=== PATIENT | male | born 1955 | race Two or more races ===

== ENCOUNTER 2025-07-12 11:18 | Inpatient (IN) | payer MEDICARE, MEDICAID ==
[~2025-07-12] VITALS: Ht 175.3 cm; Wt 72.0 kg
--- NOTE | 2025-07-12 12:11 | ED.PDOC ---
GI ASSESSMENT HPI Comments 70 year old male presents to the ED via EMS with a chief complaint of nausea/vomiting onset today (07/12/25). Per EMS, patient has been experiencing diarrhea for the past 2 days, woke up this morning experiencing nausea/vomiting. In route to ED, patient was given Zofran 4 mg, NS 500 mL. Patient states he is currently experiencing generalized weakness, drinks 1-2 beers daily. Denies fever, chills, chest pain, dizziness, headache, hematemesis, dysuria, hematuria, melena, blood in stool. No other symptoms or modifying factors present at this time. Chief Complaint: Nausea/Vomiting Time Seen by MD: 11:55 Reviewed Notes: Medications, Allergies Allergies: Coded Allergies: Penicillins (Verified Allergy, Severe, 07/12/25) Information Source: Patient, Emergency Med Personnel, Spouse Mode of Arrival: EMS Timing: Days Duration: Since onset Prehospital treatment: None Quality: Sharp Stool: Loose Severity: Moderate Recent: Ingestion of ETOH Recent Hx of: None Pain Location: Diffuse Modifying Factors: Nothing Associated sign and symptoms: Nausea, Vomiting, Diarrhea, Abdominal Pain Past Medical History PAST MEDICAL HISTORY: Denies Surgical History: Denies all surgeries Family History Family History: Reviewed,noncontributory to illness, No family hx of Cancer, No family hx of DM, No family hx of Heart hiren, No family hx of HTN, No family hx ofKidney hiren, No family hx of Liver hiren, No family hx of Lung hiren, No family hx of Stroke Social History Smoker: Non-Smoker Alcohol: Heavy Drugs: Denies Drug Use Lives In: Home Constitutional: reports: weakness; denies: chills, diaphoresis, fatigue, fever, malaise, sweats, others EENTM: denies: blurred vision, double vision, ear bleeding, ear discharge, ear drainage, ear pain, ear ringing, eye pain, eye redness, hearing loss, mouth pain, mouth swelling, nasal discharge, nose bleeding, nose congestion, nose pain, photophobia, tearing, throat pain, throat swelling, voice changes, others Respiratory: denies: cough, hemoptysis, orthopnea, SOB at rest, shortness of breath, SOB with excertion, stridor, wheezing, others Cardiovascular: denies: chest pain, dizzy spells, diaphoresis, Dyspnea on exertion, edema, irregular heart beat, left arm pain, lightheadedness, palpit ations, PND, syncope, others Gastrointestinal: reports: abdominal pain, nausea, vomiting; denies: abdomen distended, blood streaked bowels, constipated, diarrhea, dysphagia, difficulty swallowing, hematemesis, melena, poor appetite, poor fluid intake, rectal bleeding, rectal pain, others Genitourinary: denies: burning, dysuria, flank pain, frequency, hematuria, incontinence, penile discharge, penile sore, pain, testicle pain, testicle swelling, urgency, others Neurological: denies: dizziness, fainting, headache, left sided numbness, left sided weakness, numbness, paresthesia, pre-existing deficit, right sided numbness, right sided weakness, seizure, speech problems, tingling, tremors, weakness, others Musculoskeletal: denies: back pain, gout, joint pain, joint swelling, muscle pain, muscle stiffness, neck pain, others Integumetry: denies: bruises, change in color, change in hair/nails, dryness, laceration, lesions, lumps, rash, wounds, others Allergic/Immunocompromised: denies: Difficulty Healing, Frequent Infections, Hives, Itching, others Hematologic/Lymphatic: denies: anemia, blood clots, easy bleeding, easy bruising, swollen glands, others Endocrine: denies: excessive hunger, excessive sweating, excessive thirst, excessive urination, flushing, intolerance to cold, intolerance to heat, unexplained weight gain, unexplained weight loss, others Psychiatric: denies: anxiety, bipolar disorder, depression, hopeless, panic disorder, schizophrenia, sleepless, suicidal, others All Other Systems: Reviewed and Negative Physical Exam General Appearance: Moderate Distress, Normal HEENT: Normal ENT Inspection, Pharynx Normal, TMs Normal Neck: Full Range of Motion, Non-Tender, Normal, Normal Inspection Respiratory: Chest Non-Tender, Lungs Clear, No Accessory Muscle Use, No R espiratory Distress, Normal Breath Sounds Cardiovascular: No Edema, No JVD, No Murmur, No Gallop, Normal Peripheral Pulses, Regular Rate/Rhythm Breast Exam: Deferred Gastrointestinal: No Organomegaly, Non Tender, No Pulsatile Mass, Normal Bowel Sounds, Soft Genitalia: Deferred Pelvic: Deferred Rectal: Deferred Extremities: No calf tenderness, Normal capillary refill, Normal inspection, Normal range of motion, Non-tender, No pedal edema Musculoskeletal : Apperance: Normal Neurologic: Alert, 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 Was a procedure done?: No GI differential Dx Differential Diagnosis: Constipation, Diverticular disease, Esophagitis, Gastritis/PUD, Gastroenteritis X-Ray, Labs, Meds, VS Vital Signs Date Time Temp Pulse Resp B/P (MAP) Pulse Ox O2 Delivery O2 Flow Rate FiO2 07/12/25 16:12 97.5 84 19 142/73 (96) 97 97.5 07/12/25 12:11 70 07/12/25 11:26 97.6 72 18 169/96 97 97.6 07/12/25 11:22 70 Lab Test 07/12/25 12:45 Range/Units White Blood Count 11.7 H 4.4-10.8 10^3/uL Red Blood Count 5.50 4.5-5.90 10^6/uL Hemoglobin 17.5 13.5-17.5 g/dL Hematocrit 51.3 41.0-53.0 % Mean Corpuscular Volume 93.4 80.0-100.0 fL Mean Corpuscular Hemoglobin 31.7 28.0-32.0 pg Mean Corpuscular Hemoglobin Concent 34.0 32.0-36.0 g/dL Red Cell Distribution Width 13.0 11.8-14.3 % Platelet Count 235 140-450 10^3/uL Mean Platelet Volume 7.0 6.9-10.8 fL Neutrophils (%) (Auto) 83.2 H 37.0-80.0 % Lymphocytes (%) (Auto) 10.2 10.0-50.0 % Monocytes (%) (Auto) 6.2 0.0-12.0 % Eosinophils (%) (Auto) 0.2 0.0-7.0 % Basophils (%) (Auto) 0.2 0.0-2.0 % Neutrophils # (Auto) 9.7 H 1.6-8.6 10 ^3/uL Lymphocytes # (Auto) 1.2 0.4-5.4 10 ^3/uL Monocytes # (Auto) 0.7 0-1.3 10 ^3/uL Eosinophils # (Auto) 0 0-0.8 10 ^3/uL Basophils # (Auto) 0 0-0.2 10 ^3/uL Nucleated Red Blood Cells 0.1 % Sodium Level 140 136-145 mmol/L Potassium Level 4.3 3.5-5.1 mmol/L Chloride Level 103 98-107 mmol/L Carbon Dioxide Level 28 20-31 mmol/L Anion Gap 9 5-15 Blood Urea Nitrogen 20 9-23 mg/dL Creatinine 1.02 0.700-1.30 mg/dL Glomerular Filtration Rate Calc 80 >90 mL/min BUN/Creatinine Ratio 19.6 10.0-20.0 Serum Glucose 123 H 74-106 mg/dL Hemoglobin A1c 5.6 <5.7 % A1C Calcium Level 9.7 8.7-10.4 mg/dL Phosphorus Level 2.2 L 2.4-5.1 mg/dL Magnesium Level 1.9 1.6-2.6 mg/dL Total Bilirubin 0.8 0.2-1.0 mg/dL Direct Bilirubin 0.2 <0.3 mg/dL Aspartate Amino Transferase (AST) 36 13-40 U/L Alanine Aminotransferase (ALT) 28 7-40 U/L Alkaline Phosphatase 98 46-116 U/L Troponin I High Sensitivity 9 </=54 ng/L Total Protein 7.8 5.7-8.2 g/dL Albumin 4.9 H 3.2-4.8 g/dL Triglycerides Level 139 < 150 mg/dL Cholesterol Level 224 H < 200 mg/dL LDL Cholesterol 154 H < 100 mg/dL HDL Cholesterol 62 H 40-59 mg/dL Lipase Pending Current Medications Medications (Trade) Dose Ordered Sig/Nani Route Start Time Stop Time Status Last Admin Ondansetron HCl (Zofran) 4 mg ONCE ONCE IV 07/12/25 12:15 07/12/25 12:16 DC 07/12/25 13:22 Sodium Chloride 1,000 ml @ 1,000 mls/hr Q1H ONCE IV 07/12/25 12:15 07/12/25 13:14 DC 07/12/25 12:15 Patient alert. Came in for generalized weakness. Vitals stable. Answering questions. Moving all extremities. History of alcohol use. Liver profile within normal limits. Establish intravenous access. Was given fluids. WBC slightly elevated. Blood pressure elevated. EKG reviewed does not show any acute changes. Explained to the patient. Continue monitoring. Time of 1ST Reevaluation: 12:25 Reevaluation 1ST: Unchanged Patient Education/Counseling: Diagnosis, Treatment, Prognosis Family Education/Counseling: Diagnosis, Treatment, Prognosis SEPSIS Sepsis Screen Date sepsis recognized/suspect: Jul 12, 2025 Time Sepsis recognized/suspect: 1127 Recent Procedure: No On Antibiotic Therapy: No Respiratory Rate >20: No Heart Rate >90: No Temp<36 C (96.8 F) or >38.3 C: No SBP <90 or MAP <65 mmHG: No New Acute Mental Status Change: No Is the patient on CPAP, BIPAP,: No Physician Orders Electrocardigram (07/12/25 11:59) Admit (07/12/25 15:19) Allergies (07/12/25 15:19) Code Status (07/12/25 15:19) Zinc Sulfate (07/13/25 10:00) Complete Blood Count (07/13/25 04:00) Comprehensive Metabolic Panel (07/13/25 04:00) Npo (Nothing By Mouth) Diet (07/12/25 Dinner) Pt Request For Service (07/12/25 15:19) Echo 2d Mode Cardiac Dop (07/12/25 15:19) Condition: Serious (07/12/25 15:19) Enoxaparin Sodium (Lovenox) (07/12/25 15:30) Oxygen By Nasal Cannula (07/12/25 15:19) Pantoprazole (Protonix) (07/13/25 10:00) Sucralfate Susp (Carafate Susp) (07/12/25 22:00) Ondansetron Hcl (Zofran) (07/12/25 15:30) Ceftriaxone 1gm/50ml (Rocephin) (07/13/25 09:00) Metronidazole 500mg/100ml (Flagyl 500mg/ (07/12/25 22:00) Metronidazole 500mg/100ml (Flagyl 500mg/ (07/12/25 15:30) Stool Occult Blood (07/12/25 15:19) Stool Bacterial Culture (07/12/25 15:19) Stool Wbc (07/12/25 15:19) Ova & Parasite Exam (07/12/25 15:19) Hepatic Panel (07/12/25 15:19) Drug Screen (07/12/25 15:19) Lactic Acid W/ Reflex Order (07/12/25 15:19) Lipase (07/12/25 15:19) Lipid Panel (07/12/25 15:19) Magnesium (07/12/25 15:19) Phosphorus (07/12/25 15:19) Urinalysis (07/12/25 15:19) * Wound Consult (07/12/25 ) Blood Alcohol (07/12/25 15:29) Chest Xray 1 View (07/12/25 15:29) Hiv 1&2 Antibody (07/12/25 15:41) Covid19 Antigen Eufemia (07/12/25 ) Rapid Influenza A&B (07/12/25 15:41) Sodium Chloride 0.9% (07/12/25 15:45) Sodium Chloride 0.9% (07/12/25 15:45) Blood Culture (07/12/25 15:51) Wound Culture W/ Gs (07/12/25 15:51) Clostridium Difficile Toxin (07/12/25 15:56) Potassium Phosphate (07/12/25 16:15) Vital Signs Date Time Temp Pulse Resp B/P (MAP) Pulse Ox O2 Delivery O2 Flow Rate FiO2 07/12/25 16:12 97.5 84 19 142/73 (96) 97 97.5 07/12/25 12:11 70 07/12/25 11:26 97.6 72 18 169/96 97 97.6 07/12/25 11:22 70 Laboratory Tests Test 07/12/25 12:45 White Blood Count 11.7 10^3/uL (4.4-10.8) H Medications Medications Dose Ordered Sig/Nani Route Start Time Stop Time Status Last Admin Dose Admin Ondansetron HCl 4 mg ONCE ONCE IV 07/12/25 12:15 07/12/25 12:16 DC 07/12/25 13:22 Sodium Chloride 1,000 ml @ 1,000 mls/hr Q1H ONCE IV 07/12/25 12:15 07/12/25 13:14 DC 07/12/25 12:15 Departure 1 Departure Time of Disposition: 16:17 Impression: Primary Impression: Generalized weakness Additional Impression: Hypertensive urgency Disposition: ADMITTED INPATIENT Admit to: Med Surg Condition: Guarded Critical Care Note Critical Care Time?: No Stability Stability form required: No Heart Score Heart Score: Heart Score Response (Comments) Value History Slightly Suspicious 0 EKG Normal 0 Age >65 2 Risk Factors >3 or Hx ASHD 2 Troponin Normal limit 0 Total 4 I personally scribed for ZOILA GERARDO MD ([email or web address]) on 07/12/25 at 12:11. Electronically submitted by Shawna Bush ([email or web address]). ZOILA GERARDO MD Jul 12, 2025 12:11
[2025-07-12] MEDS: SODIUM CHLORIDE 0.9% 1,000 ML IV ONE (12:15)
[2025-07-12 13:07] LABS: Hematocrit 51.3 % (41.0-53.0); Hemoglobin 17.5 g/dL (13.5-17.5); Mean Corpuscular Hemoglobin 31.7 pg (28.0-32.0); Mean Corpuscular Volume 93.4 fL (80.0-100.0); Nucleated Red Blood Cells % 0.1 %
[2025-07-12 13:15] LABS: Chloride 103 mmol/L (98-107); Potassium 4.3 mmol/L (3.5-5.1); Sodium 140 mmol/L (136-145)
[2025-07-12 13:16] LABS: Anion Gap 9 (5-15); Carbon Dioxide 28 mmol/L (20-31)
[2025-07-12 13:17] LABS: Calcium 9.7 mg/dL (8.7-10.4)
[2025-07-12 13:22] LABS: Glucose 123 mg/dL (74-106)
[2025-07-12] MEDS: ONDANSETRON HCL 4 MG/2 ML VIAL IV ONE (13:22)
[2025-07-12 13:25] LABS: BUN/Creatinine Ratio 19.6 (10.0-20.0); Blood Urea Nitrogen 20 mg/dL (9-23)
--- NOTE | 2025-07-12 14:40 | DVHHPRES ---
History of Present Illness Resident Creating Document: CYNDY COE RESIDENT History of Present Illness This is a 70-year-old male without significant past medical history, presented to the ER with chief complain of diarrhea, nausea, vomiting since 1 day. Patient is a poor historian. He complains of 12-15 episodes of diarrhea, sudden in onset, described as loose, watery, floating, no blood seen. He also had multiple episodes of retching and 1 episode of vomiting, vomitus contained watery food like contents, brown-red in color. He also complains of associated loss of appetite, chills, dizziness and generalized weakness. He consumed methamphetamine and marijuana yesterday and reportedly consumed alcohol 4 days back. He denies history of travel, eating from food truck or sick contacts. He denies fever, abdominal pain. Previous hospitalization: In 2004 for questionable spinal abscess PMHx: Questionable psoriasis, questionable GI bleed PSHx: Questionable Exploratory abdominal surgery Family history: Pancreatic cancer in brother Social history: Methamphetamine use last use yesterday, marijuana use (last use yesterday), alcohol. Denies ever smoking. House with friend. Full code, next to kin is Christina (friend) Home medication: None Allergic history: Penicillin (childhood-rash) Patient was examined at bedside today. Patient endorses that feeling dehydrated. Patient is unable to tolerate oral feed. Patient is admitted for further evaluation and management. Review of Systems Review of Systems ROS: Constitutional: Denies weight loss, fever and chills. HEENT: Denies changes in vision and hearing. Respiratory: Denies shortness of breath and cough Cardiovascular: Denies chest discomfort or palpitations GI: Abdominal pain, nausea, vomiting, loss of appetite : Denies dysuria and urinary frequency. Musculoskeletal: Denies myalgias and joint pain Skin: Denies rash and pruritus. Neurological: Dizziness; denies headache, vision or hearing problems Allergies: Coded Allergies: Penicillins (Verified Allergy, Severe, 07/12/25) Exam Vital Signs Vital Signs Date Time Temp Pulse Resp B/P (MAP) Pulse Ox O2 Delivery O2 Flow Rate FiO2 07/12/25 12:11 70 07/12/25 11:26 97.6 18 169/96 97 97.6 Exam General: Poorly kempt. Patient alert and oriented in person, place and time. Patient following commands. HEENT: Normocephalic, atraumatic, moist mucous membranes Respiratory/pulmonary: Distant breath sounds, no associated crackles or wheezes. Cardiovascular: Normal heart sounds S1 and S2 with no associated murmurs Abdomen: Midline incision scar from past surgery, well healed. Abdomen nondistended, there is no pain to palpation in any of the abdominal quadrants, no palpable masses. Extremities: Scabbing ulcer on dorsum of left foot, briefly bleeds on removal of his socks. Right heel callus, tender on palpation. Varicose veins in bilateral foot and lower legs. Pitting edema grade 1 Peripheral Pulses: 3+ Radial (R). 3+ Radial (L). 3+ Dorsalis pedis (R). 3+ Dorsalis pedis(L) Skin: Ulcer on dorsum of left foot, right heel calluses Neurological: Intact cranial nerves with no focal neurologic deficits. Labs/Xrays Labs Test 07/12/25 12:45 Range/Units White Blood Count 11.7 H 4.4-10.8 10^3/uL Red Blood Count 5.50 4.5-5.90 10^6/uL Hemoglobin 17.5 13.5-17.5 g/dL Hematocrit 51.3 41.0-53.0 % Mean Corpuscular Volume 93.4 80.0-100.0 fL Mean Corpuscular Hemoglobin 31.7 28.0-32.0 pg Mean Corpuscular Hemoglobin Concent 34.0 32.0-36.0 g/dL Red Cell Distribution Width 13.0 11.8-14.3 % Platelet Count 235 140-450 10^3/uL Mean Platelet Volume 7.0 6.9-10.8 fL Neutrophils (%) (Auto) 83.2 H 37.0-80.0 % Lymphocytes (%) (Auto) 10.2 10.0-50.0 % Monocytes (%) (Auto) 6.2 0.0-12.0 % Eosinophils (%) (Auto) 0.2 0.0-7.0 % Basophils (%) (Auto) 0.2 0.0-2.0 % Neutrophils # (Auto) 9.7 H 1.6-8.6 10 ^3/uL Lymphocytes # (Auto) 1.2 0.4-5.4 10 ^3/uL Monocytes # (Auto) 0.7 0-1.3 10 ^3/uL Eosinophils # (Auto) 0 0-0.8 10 ^3/uL Basophils # (Auto) 0 0-0.2 10 ^3/uL Nucleated Red Blood Cells 0.1 % Sodium Level 140 136-145 mmol/L Potassium Level 4.3 3.5-5.1 mmol/L Chloride Level 103 98-107 mmol/L Carbon Dioxide Level 28 20-31 mmol/L Anion Gap 9 5-15 Blood Urea Nitrogen 20 9-23 mg/dL Creatinine 1.02 0.700-1.30 mg/dL Glomerular Filtration Rate Calc 80 >90 mL/min BUN/Creatinine Ratio 19.6 10.0-20.0 Serum Glucose 123 H 74-106 mg/dL Calcium Level 9.7 8.7-10.4 mg/dL Troponin I High Sensitivity 9 </=54 ng/L SEPSIS Sepsis Screen Date sepsis recognized/suspect: Jul 12, 2025 Time Sepsis recognized/suspect: 1128 Recent Procedure: No On Antibiotic Therapy: No Respiratory Rate >20: No Heart Rate >90: No Temp<36 C (96.8 F) or >38.3 C: No SBP <90 or MAP <65 mmHG: No New Acute Mental Status Change: No Is the patient on CPAP, BIPAP,: No Physician Orders Electrocardigram (07/12/25 11:59) Vital Signs Date Time Temp Pulse Resp B/P (MAP) Pulse Ox O2 Delivery O2 Flow Rate FiO2 07/12/25 12:11 70 07/12/25 11:26 97.6 72 18 169/96 97 97.6 07/12/25 11:22 70 Laboratory Tests Test 07/12/25 12:45 White Blood Count 11.7 10^3/uL (4.4-10.8) H Medications Medications Dose Ordered Sig/Nani Route Start Time Stop Time Status Last Admin Dose Admin Ondansetron HCl 4 mg ONCE ONCE IV 07/12/25 12:15 07/12/25 12:16 DC 07/12/25 13:22 4 MG Sodium Chloride 1,000 ml @ 1,000 mls/hr Q1H ONCE IV 07/12/25 12:15 07/12/25 13:14 DC 07/12/25 12:15 1,000 MLS/HR Assessment/Plan Assessment/Plan Acute infectious gastroenteritis Acute intractable vomiting and diarrhea due to above Labs showed neutrophilic leukocytosis Supportive management with IV Zofran, IV fluids IV ceftriaxone 1 g daily IV metronidazole 500 mg 3 times daily Monitor electrolytes NPO ice chips only; Advance diet as tolerated Stool occult blood, stool WBC, ova, parasite, culture, urine analysis, lipid panel, chest x-ray, influenza, COVID, HIV testing ordered Left dorsal Foot ulcer, unstage Wound consult ordered History of substance abuse Blood alcohol, drug screen ordered DIET: NPO; advance as tolerated DVT PROPHYLAXIS: Lovenox GI PROPHYLAXIS: Protonix CODE STATUS: Goals of care discussed with patient at bedside for more than 35 minutes. Full code DISPOSITION: Med/surge Patient's status and plan discussed with the patient. Case discussed with Dr. Sanchez Plan discussed with: Patient, Other (Nurses, friend) Date of Service: Jul 12, 2025 Billing Provider: ABI SANCHEZ MD Common Visit Codes: 78267-CSEJFXK INP/OBS CARE (HIGH) Secondary Visit Codes: 19139-[id number] CARE PLAN 30 MINUTES CYNDY COE RESIDENT Jul 12, 2025 14:40 ABI SANCHEZ MD Jul 19, 2025 20:24
[2025-07-12] MEDS ORDERED: ONDANSETRON HCL 4 MG/2 ML VIAL IV PRN (15:30)
[2025-07-12 15:57] LABS: Alanine Aminotransferase 28.0 U/L (7-40); Alkaline Phosphatase 98.0 U/L (46-116); Bilirubin, Direct 0.2 mg/dL (<0.3); Magnesium 1.9 mg/dL (1.6-2.6); Total Protein 7.8 g/dL (5.7-8.2); Triglycerides 139.0 mg/dL (< 150)
[2025-07-12 15:58] LABS: Bilirubin, Total 0.8 mg/dL (0.2-1.0)
[2025-07-12 15:59] LABS: Albumin 4.9 g/dL (3.2-4.8); Cholesterol 224.0 mg/dL (< 200); HDL Cholesterol 62.0 mg/dL (40-59)
[2025-07-12 16:09] LABS: Lipase 35.0 U/L (12-53)
[2025-07-12 16:12] VITALS: PULSE 84; RESP 19; O2SAT 97
[2025-07-12] MEDS ORDERED: POTASSIUM PHOSPHATE 22 MEQ in SODIUM CHL 0.9% 100 ML IV ONE (16:15)
--- NOTE | 2025-07-12 16:17 | DVH ---
CHEST RADIOGRAPH Indication: Rule out pneumonia Technique: Single frontal view of the chest was obtained Comparison: None FINDINGS: Lines and Tubes: None Lungs: No focal consolidation. Minimal blunting of the right costophrenic angle. No pneumothorax. Cardiomediastinal contours: Heart size is within normal limits with uncoiling of the aorta Bones: No acute osseous abnormality. 0.6 cm x 2.1 cm dense structure overlying the right lateral shou lder which is most likely external to the patient. IMPRESSION: Minimal blunting of the right costophrenic angle which may be from atelectasis / trace effusion.
[2025-07-12 17:22] LABS: COVID19 ANTIGEN SOFIA FIA NEGATIVE (NEGATIVE)
[2025-07-12] MEDS: PANTOPRAZOLE 40 MG/10 ML VIAL INJ IV ONE (17:54)
[2025-07-12] MEDS: ENOXAPARIN SOD 40 MG/0.4 ML SYRINGE SC SCH (18:04)
[2025-07-12] MEDS: SODIUM CHLORIDE 0.9% 500 ML IV ONE (18:04)
[2025-07-12 18:59] VITALS: O2SAT 95
[2025-07-12 20:00] VITALS: PULSE 89; RESP 18; O2SAT 94
[2025-07-12 21:00] VITALS: BP 151/75; PULSE 89; RESP 18; TEMP 97.5; O2SAT 94
[2025-07-12] MEDS: SUCRALFATE 1 GM/10 ML ORAL SUSP PO SCH (22:43)
[2025-07-13 01:00] VITALS: BP 147/81; PULSE 86; RESP 18; TEMP 98.3; O2SAT 95
[2025-07-13 05:00] VITALS: BP 109/71; PULSE 102; RESP 18; TEMP 98.4; O2SAT 94
[2025-07-13 06:28] LABS: Hematocrit 47.8 % (41.0-53.0); Hemoglobin 16.5 g/dL (13.5-17.5); Mean Corpuscular Hemoglobin 32.4 pg (28.0-32.0); Mean Corpuscular Volume 94.3 fL (80.0-100.0); Nucleated Red Blood Cells % 0.2 %
[2025-07-13 06:46] LABS: Alanine Aminotransferase 20 U/L (7-40); Alkaline Phosphatase 85 U/L (46-116); Anion Gap 11 (5-15); BUN/Creatinine Ratio 16.3 (10.0-20.0); Blood Urea Nitrogen 13 mg/dL (9-23); Calcium 8.9 mg/dL (8.7-10.4); Carbon Dioxide 22 mmol/L (20-31); Glucose 83 mg/dL (74-106); Potassium 3.7 mmol/L (3.5-5.1); Sodium 141 mmol/L (136-145); Total Protein 7.2 g/dL (5.7-8.2)
[2025-07-13 06:47] LABS: Albumin 4.4 g/dL (3.2-4.8)
[2025-07-13 06:48] LABS: Bilirubin, Total 1.1 mg/dL (0.2-1.0)
[2025-07-13 06:54] LABS: Chloride 108 mmol/L (98-107)
--- NOTE | 2025-07-13 07:39 | ECG ---
[facility] Test Date: 2025-07-12 Test Time: 11:22:38 Pat Name: SABINO JAMES Department[facility] ED Patient ID: [id number] Room: 0232 A Gender: M [employer] Consultant: hailey : 1955 Requested By: ZOILA GERARDO Order Number: [id number] Reading MD: Jamir Thurston Measurements Intervals [place] Rate: 70 P: 17 DC: 192 QRS: -22 QRSD: 90 T: 46 QT: 416 QTc: 449 Interpretive Statements Sinus rhythm Probable left atrial enlargement Inferior infarct, old Consider anterior infarct Electronically Signed On 07-20-2025 13:13:46 PST by Jamir Thurston Please click the below link to view image of tracing.
[2025-07-13 08:37] VITALS: BP 123/73; PULSE 98; RESP 18; TEMP 98.2; O2SAT 96
[2025-07-13] MEDS: ZINC SULFATE 220mg CAP or TAB PO SCH (10:04)
[2025-07-13] MEDS: PANTOPRAZOLE 40 MG/10 ML VIAL INJ IV SCH (10:04)
[2025-07-13] MEDS: SODIUM CHLORIDE 0.9% 1,000 ML IV SCH (11:45)
--- NOTE | 2025-07-13 11:46 | DVHPNRES ---
Progress Note Date Seen: Jul 13, 2025 Resident Creating Document: CYNDY COE RESIDENT Medical Necessity Reason Pt with a Central, PICC or Fol: No Subjective Review of Systems Brief history on admission: This is a 70-year-old male without significant past medical history, presented to the ER with chief complain of diarrhea, nausea, vomiting since 1 day. Patient is a poor historian. He complains of 12-15 episodes of diarrhea, sudden in onset, described as loose, watery, floating, no blood seen. He also had multiple episodes of retching and 1 episode of vomiting, vomitus contained watery food like contents, brown-red in color. He also complains of associated loss of appetite, chills, dizziness and generalized weakness. He consumed methamphetamine and marijuana yesterday and reportedly consumed alcohol 4 days back. He denies history of travel, eating from food truck or sick contacts. He denies fever, abdominal pain. Previous hospitalization: In 2004 for questionable spinal abscess PMHx: Questionable psoriasis, questionable GI bleed, psoriasis PSHx: Questionable Exploratory abdominal surgery Family history: Pancreatic cancer in brother Social history: Methamphetamine use last use yesterday, marijuana use (last use yesterday), alcohol. Denies ever smoking. House with friend. Full code, next to kin is Christina (friend) Home medication: None Allergic history: Penicillin (childhood-rash) 07/12/2025: Patient endorses that feeling dehydrated. Patient is unable to tolerate oral feed. Patient is admitted for further evaluation and management. 07/13/2025: Patient was examined at bedside today. No new complaints. Pending stool culture, C diff; trial of diet advanced to clear liquid. Objective vital signs Vital Sign Date Time Temp Pulse Resp B/P (MAP) Pulse Ox O2 Delivery O2 Flow Rate FiO2 07/13/25 08:37 98.2 98 18 123/73 (90) 96 98.2 07/13/25 08:00 Room Air* 0 21 Total Intake and Output 07/12/25 07/12/25 07/13/25 15:00 23:00 07:00 Intake Total 1000 ml 550 ml 200 ml Balance 1000 ml 550 ml 200 ml medications Current Medications Medications Dose Ordered Sig/Nani Route Start Time Stop Time Status Last Admin Dose Admin Zinc Sulfate 220 mg DAILY PO 07/13/25 10:00 07/13/25 10:04 220 MG Enoxaparin Sodium 40 mg DAILY SC 07/12/25 15:30 07/13/25 10:04 40 MG Pantoprazole Sodium 40 mg DAILY IV 07/13/25 10:00 07/13/25 10:04 40 MG Sucralfate 1 gm BID@0600,2200 PO 07/12/25 22:00 07/13/25 05:36 1 GM Ondansetron HCl 4 mg Q6HPRN PRN IV 07/12/25 15:30 Ceftriaxone Sodium 50 ml @ 100 mls/hr DAILY@09 IV 07/13/25 09:00 07/13/25 10:03 100 MLS/HR Metronidazole 100 ml @ 100 mls/hr Q8HR IV 07/12/25 22:00 07/13/25 05:31 100 MLS/HR Sodium Chloride 1,000 ml @ 100 mls/hr Q10H IV 07/12/25 15:45 Examination General: Poorly kempt. Patient alert and oriented in person, place and time. Patient following commands. HEENT: Normocephalic, atraumatic, moist mucous membranes Respiratory/pulmonary: Distant breath sounds, no associated crackles or wheezes. Cardiovascular: Normal heart sounds S1 and S2 with no associated murmurs Abdomen: Midline incision scar from past surgery, well healed. Abdomen nondistended, there is no pain to palpation in any of the abdominal quadrants, no palpable masses. Extremities: Scabbing psoriasis ulcer on dorsum of left foot, briefly bleeds on removal of his socks. Right heel callus, tender on palpation. Varicose veins in bilateral foot and lower legs. Peripheral Pulses: 3+ Radial (R). 3+ Radial (L). 3+ Dorsalis pedis (R). 3+ Dorsalis pedis(L) Skin: Ulcer on dorsum of left foot, right heel calluses Neurological: Intact cranial nerves with no focal neurologic deficits. laboratory and microbiology Laboratory Tests 07/13/25 04:32 Test 07/13/25 04:32 Range/Units Serum Glucose 83 74-106 mg/dL Problem List/Assessment/Plan Problem List/Assessment/Plan Acute infectious gastroenteritis Occult GI bleed Acute intractable vomiting and diarrhea due to above Labs showed neutrophilic leukocytosis Supportive management with IV Zofran, IV fluids IV ceftriaxone 1 g daily IV metronidazole 500 mg 3 times daily Monitor electrolytes NPO ice chips only; Advance diet as tolerated Influenza, COVID, HIV serology negative Stool occult blood positive, monitor H&H Stool occult blood, stool WBC, ova, parasite, culture, urine analysis, lipid panel, chest x-ray, influenza, COVID pending Diet advanced to clear liquid Left dorsal Foot ulcer, unstage Wound consult ordered History of substance abuse Blood alcohol negative Drug screen pending Hypercholesteremia Elevated triglycerides, LDL. ASCVD risk 18%, recommended discharging on moderate to high-dose statin History of psoriasis Continue clinical monitoring DIET: NPO; advance as tolerated DVT PROPHYLAXIS: Lovenox GI PROPHYLAXIS: Protonix CODE STATUS: Goals of care discussed with patient at bedside for more than 18 minutes. Full code DISPOSITION: Med/surge Patient's status and plan discussed with the patient. Case discussed with Dr. Sanchez Plan discussed with: Patient, Other (Nurses) My Orders My Orders Orders - CYNDY COE RESIDENT Procedure Category Date Status Time Admit ADMIT 07/12/25 Transmitted 15:19 Allergies COSME 07/12/25 In Process 15:19 Code Status CODE 07/12/25 Transmitted 15:19 Zinc Sulfate PHA 07/13/25 In Process 10:00 Npo (Nothing By DIET 07/12/25 Transmitted Mouth) Diet Dinner Pt Request For Service PT 07/12/25 Logged 15:19 Condition: Serious COSME 07/12/25 In Process 15:19 Enoxaparin Sodium PHA 07/12/25 In Process (Lovenox) 15:30 Oxygen By Nasal RT 07/12/25 Transmitted Cannula 15:19 Pantoprazole PHA 07/13/25 In Process (Protonix) 10:00 Sucralfate Susp PHA 07/12/25 In Process (Carafate Susp) 22:00 Ondansetron Hcl PHA 07/12/25 In Process (Zofran) 15:30 Ceftriaxone 1gm/50ml PHA 07/13/25 In Process (Rocephin) 09:00 Metronidazole PHA 07/12/25 In Process 500mg/100ml (Flagyl 22:00 Stool Bacterial MANOLO 07/12/25 In Process Culture 15:19 Ova & Parasite Exam MANOLO 07/12/25 In Process 15:19 Drug Screen LAB 07/12/25 Logged 15:19 Urinalysis LAB 07/12/25 Logged 15:19 * Wound Consult CONS 07/12/25 Transmitted Chest Xray 1 View XY 07/12/25 Resulted 15:29 Sodium Chloride 0.9% PHA 07/12/25 In Process 15:45 Blood Culture MANOLO 07/12/25 In Process 15:51 Wound Culture W/ Gs MANOLO 07/12/25 Logged 15:51 Clostridium Difficile MANOLO 07/12/25 In Process Toxin 15:56 Echo 2d Mode Cardiac US 07/13/25 Logged DOP 15:19 Clear Liq Diet DIET 07/13/25 Verified Lunch Date of Service: Jul 13, 2025 Billing Provider: ABI SANCHEZ MD Common Visit Codes: [id number] INP/OBS CARE(HIGH) CYNDY COE RESIDENT Jul 13, 2025 11:46 ABI SANCHEZ MD Jul 19, 2025 20:24
[2025-07-13 13:00] VITALS: BP 149/82; PULSE 85; RESP 18; TEMP 98.4; O2SAT 95
[2025-07-13 13:23] LABS: Urine Protein, UAD TRACE (Negative)
[2025-07-13 16:37] LABS: Amphetamine Screen, Urine Pos (NEGATIVE); Barbiturate Scree,Urine Neg (NEGATIVE); Benzodiazephine Screen, Urine Neg (NEGATIVE); Cannabinoid Screen, Urine Pos (NEGATIVE); Cocaine Screen, Urine Neg (NEGATIVE); Opiate Scree,Urine Neg (NEGATIVE); Phencyclidine Screen, Urine Neg (NEGATIVE)
[2025-07-13 16:56] VITALS: BP 133/71; PULSE 85; RESP 18; TEMP 97.7; O2SAT 91
[2025-07-13 21:00] VITALS: BP 133/72; PULSE 76; RESP 16; TEMP 98.4; O2SAT 93
--- NOTE | 2025-07-13 22:11 | DVHSR ---
APPROVED REPORT EXAM: Two-dimensional and M-mode echocardiogram with Doppler and color Doppler. Blood Pressure: 109/71 mmHg INDICATION Heart Failure RISK FACTORS Height: 5'9", Weight: 158 DIMENSIONS LVDd4.1 (3.8-5.7cm)LA (2D)3.9 (1.9-4.0cm)Aortic Root3.6 (2.0-3.7cm) LVDs2.1 (2.5-4.0cm)LA (MM) (1.9-4.0cm)Aortic Cusp Exc2.0 (1.5-2.0cm) EF (%) 79.0 (55-70%)Rt. Atrium3.3 (1.9-4.0cm)Asc. Aorta3.4 cm IVSd1.6 (0.7-1.1cm)RV (D) (1.8-2.4cm) PWd0.7 (0.7-1.1cm) Mitral Valve MitralMitral Stenosis E wave0.48m/sMV Mean GR.mmHg A wave1.07m/sMV Peak GR.mmHg E/A ratio0.42D MVAcm2 DECEL [id number] 1/2 Timems Aortic Valve Aortic ValveAortic Stenosis V11.25m/Cornelia Mean GR.4mmHg V21.26m/Cornelia Peak GR.6mmHg LVOT Diameter2.0 (1.8-2.4cm)Doppler AVA3.12cm2 Pulmonic Valve V21.05m/s Other Information Quality : Technically LimitedRhythm : Technically limited study due to body habitus. Conclusion MODERATE DEGREE LVH AND MODERATE DEGREE LV DIASTOLIC DYSFUNCTION LV EF IS 70% NORMAL VALVES SLIGHTLY DILATED RV NO EFFUSION
[2025-07-14 01:00] VITALS: BP 133/69; PULSE 67; RESP 16; TEMP 98.4; O2SAT 96
[2025-07-14 05:00] VITALS: BP 130/75; PULSE 75; RESP 16; TEMP 98.3; O2SAT 95
[2025-07-14 05:45] LABS: Hematocrit 41.6 % (41.0-53.0); Hemoglobin 14.2 g/dL (13.5-17.5); Mean Corpuscular Hemoglobin 31.9 pg (28.0-32.0); Mean Corpuscular Volume 93.7 fL (80.0-100.0); Nucleated Red Blood Cells % 0.0 %
[2025-07-14 05:59] LABS: Carbon Dioxide 26 mmol/L (20-31); Potassium 3.8 mmol/L (3.5-5.1); Sodium 140 mmol/L (136-145)
[2025-07-14 06:04] LABS: BUN/Creatinine Ratio 12.8 (10.0-20.0); Blood Urea Nitrogen 11 mg/dL (9-23); Glucose 105 mg/dL (74-106)
[2025-07-14 06:06] LABS: Anion Gap 6 (5-15); Calcium 8.6 mg/dL (8.7-10.4); Chloride 108 mmol/L (98-107)
[2025-07-14 08:32] VITALS: BP 142/78; PULSE 66; RESP 16; TEMP 97.7; O2SAT 95
[2025-07-14 13:00] VITALS: BP 142/79; PULSE 67; RESP 16; TEMP 98.1; O2SAT 94
[2025-07-14] MEDS ORDERED: PANT40T PO (13:51)
[2025-07-14 15:00] VITALS: BP 142/79; PULSE 67; RESP 16; TEMP 36.7; O2SAT 94
[2025-07-14] MEDS ORDERED: ATOR40TA52 PO (15:03)
--- NOTE | 2025-07-14 16:00 | DVHDSRES ---
Discharge Summary Date of Admission Resident Creating Document: CYNDY COE RESIDENT Jul 12, 2025 at 15:27 Date of Discharge: Jul 14, 2025 Labs/Diagnostic Data: Laboratory Results Test 07/14/25 04:40 07/13/25 11:30 07/13/25 04:32 07/12/25 20:19 White Blood Count 5.8 10^3/uL (4.4-10.8) Red Blood Count 4.44 10^6/uL (4.5-5.90) Hemoglobin 14.2 g/dL (13.5-17.5) Hematocrit 41.6 % (41.0-53.0) Mean Corpuscular Volume 93.7 fL (80.0-100.0) Mean Corpuscular Hemoglobin 31.9 pg (28.0-32.0) Mean Corpuscular Hemoglobin Concent 34.1 g/dL (32.0-36.0) Red Cell Distribution Width 13.1 % (11.8-14.3) Platelet Count 147 10^3/uL (140-450) Mean Platelet Volume 7.4 fL (6.9-10.8) Neutrophils (%) (Auto) 60.7 % (37.0-80.0) Lymphocytes (%) (Auto) 27.3 % (10.0-50.0) Monocytes (%) (Auto) 9.6 % (0.0-12.0) Eosinophils (%) (Auto) 2.1 % (0.0-7.0) Basophils (%) (Auto) 0.3 % (0.0-2.0) Neutrophils # (Auto) 3.5 10 ^3/uL (1.6-8.6) Lymphocytes # (Auto) 1.6 10 ^3/uL (0.4-5.4) Monocytes # (Auto) 0.6 10 ^3/uL (0-1.3) Eosinophils # (Auto) 0.1 10 ^3/uL (0-0.8) Basophils # (Auto) 0 10 ^3/uL (0-0.2) Nucleated Red Blood Cells 0.0 % Sodium Level 140 mmol/L (136-145) Potassium Level 3.8 mmol/L (3.5-5.1) Chloride Level 108 mmol/L (98-107) Carbon Dioxide Level 26 mmol/L (20-31) Anion Gap 6 (5-15) Blood Urea Nitrogen 11 mg/dL (9-23) Creatinine 0.86 mg/dL (0.700-1.30) Glomerular Filtration Rate Calc 94 mL/min (>90) BUN/Creatinine Ratio 12.8 (10.0-20.0) Serum Glucose 105 mg/dL (74-106) Calcium Level 8.6 mg/dL (8.7-10.4) Urine Color Yellow (Yellow) Urine Clarity Clear (Clear) Urine pH 5.5 (5.0-9.0) Urine Specific [place] 1.026 (1.001-1.035) Urine Protein Trace (Negative) Urine Ketones 1+ (Negative) Urine Blood Negative /uL (Negative) Urine Nitrite Negative (Negative) Urine Bilirubin Negative (Negative) Urine Urobilinogen Normal mg/dL (Negative) Urine Leukocyte Esterase Negative /uL (Negative) Urine RBC 1 /hpf (0 - 3) Urine Microscopic WBC 1 /HPF (0-3) Urine Squamous Epithelial Cells Few /hpf (<5) Urine Bacteria None seen /hpf (None Seen) Urine Mucus Few (None Seen) Urine Glucose Normal mg/dL (Normal) Urine Opiates Screen Neg (NEGATIVE) Urine Fentanyl Screen Neg (NEGATIVE) Urine Barbiturates Screen Neg (NEGATIVE) Urine Phencyclidine Screen Neg (NEGATIVE) Urine Amphetamines Screen Pos (NEGATIVE) Urine Benzodiazepines Screen Neg (NEGATIVE) Urine Cocaine Screen Neg (NEGATIVE) Urine Cannabinoids Screen Pos (NEGATIVE) Total Bilirubin 1.1 mg/dL (0.2-1.0) Aspartate Amino Transferase (AST) 27 U/L (13-40) Alanine Aminotransferase (ALT) 20 U/L (7-40) Alkaline Phosphatase 85 U/L (46-116) Total Protein 7.2 g/dL (5.7-8.2) Albumin 4.4 g/dL (3.2-4.8) Stool Occult Blood Positive (Negative) Stool Occult Blood Sample #3 (Negative) Stool for White Cells None seen Test 07/12/25 16:28 07/12/25 16:15 07/12/25 12:45 Influenza Type A Antigen Negative (Negative) Influenza Type B Antigen Negative (Negative) SARS-CoV-2 Antigen (Rapid) Negative (NEGATIVE) Lactic Acid Level 0.8 mmol/L (0.4-2.0) Plasma/Serum Blood Alcohol < 3.0 mg/dL (<10) HIV (1&2) Antibody Negative (Negative) Hemoglobin A1c 5.6 % A1C (<5.7) Phosphorus Level 2.2 mg/dL (2.4-5.1) Magnesium Level 1.9 mg/dL (1.6-2.6) Direct Bilirubin 0.2 mg/dL (<0.3) Troponin I High Sensitivity 9 ng/L (</=54) Triglycerides Level 139 mg/dL (< 150) Cholesterol Level 224 mg/dL (< 200) LDL Cholesterol 154 mg/dL (< 100) HDL Cholesterol 62 mg/dL (40-59) Lipase 35 U/L (12-53) Other Laboratory Tests 07/14/25 04:40 Brief Hx & Hospital Course: History on admission: This is a 70-year-old male without significant past medical history, presented to the ER with chief complain of diarrhea, nausea, vomiting. Patient is a poor historian. He complains of 12-15 episodes of diarrhea, sudden in onset, described as loose, watery, floating, no blood seen. He also had multiple episodes of retching and 1 episode of vomiting, vomitus contained watery food like contents, brown-red in color. He also complains of associated loss of appetite, chills, dizziness and generalized weakness. He consumed methamphetamine and marijuana yesterday and reportedly consumed alcohol 4 days before hospital admission. He denies history of travel, eating from food truck or sick contacts. He denies fever, abdominal pain. Brief hospital course: Patient's initial labs showed neutrophilic leukocytosis. Supportive management with IV Zofran, IV fluids and NPO started. IV ceftriaxone and metronidazole started. Patient's stool occult blood was positive, his H and H was stable during the stay; stool and blood, culture, influenza, COVID negative. His cholesterol and LDL was high, discussed ASCVD risk 18%, recommended moderate to high-dose statin. Patient hesitant to start statin. Discussed side effects and benefit with patient and friend on bedside. Patient is stable for discharge. Conditions treated during stay: Acute infectious gastroenteritis Occult GI bleed Acute intractable vomiting and diarrhea due to above Left dorsal Foot pressure ulcer, ruled out Psoriasis Left dorsal Foot lesion History of substance abuse Hypercholesteremia History of psoriasis Plan: Continue Protonix p.o. 40 mg daily Start atorvastatin 40 mg daily Please follow-up in discharge clinic Please establish PCP Operations or Procedures CHEST RADIOGRAPH Indication: Rule out pneumonia Technique: Single frontal view of the chest was obtained Comparison: None FINDINGS: Lines and Tubes: None Lungs: No focal consolidation. Minimal blunting of the right costophrenic angle. No pneumothorax. Cardiomediastinal contours: Heart size is within normal limits with uncoiling of the aorta Bones: No acute osseous abnormality. 0.6 cm x 2.1 cm dense structure overlying the right lateral shoulder which is most likely external to the patient. IMPRESSION: Minimal blunting of the right costophrenic angle which may be from atelectasis / trace effusion. Condition at Discharge: Stable Final Diagnosis/Problems List Acute infectious gastroenteritis Occult GI bleed Acute intractable vomiting and diarrhea due to above Left dorsal Foot pressure ulcer, ruled out Psoriasis Left dorsal Foot lesion History of substance abuse Hypercholesteremia History of psoriasis Discharge Disposition: Home Discharge Instruct/Medications Diet: Cardiac 2g Na,low cholest Activity: No Restrictions, As Tolerated Follow Up/Referral: Folow up in discharge clinic in 1 week Medications: As per EHR New Medications: Atorvastatin Calcium (Atorvastatin Calcium) 40 Mg Tab 1 TAB PO DAILY for 30 Days, #30 TAB 5 Refills Pantoprazole Sodium Sesquihydr (Pantoprazole Sodium) 40 Mg Tab 40 MG PO DAILY for 30 Days, #30 TAB Scheduled Atorvastatin Calcium (Atorvastatin Calcium), 1 TAB PO DAILY Pantoprazole Sodium Sesquihydr (Pantoprazole Sodium), 40 MG PO DAILY Discharge Statement: "Patient was advised to return to the ER or call 911 if any headaches, dizziness, shortness of breath, chest pain, abdominal pain, bleeding, fevers, or worsening of medical condition. Patient was counseled about treatment plan, medications, possible side effects, patientverbalized understanding. All questions were answered to the best of my ability. This discharge took greater then 30 minutes in planning, reviewing documentation, counseling the patient, and discussing with other team members." ASSESSMENT ASSESSMENT Assessment Acute infectious gastroenteritis Occult GI bleed Acute intractable vomiting and diarrhea due to above Left dorsal Foot ulcer, ruled out Psoriasis of Left dorsal Foot ulcer History of substance abuse Hypercholesteremia History of psoriasis Date of Service: Jul 14, 2025 Billing Provider: ABI IBARRA MD Common Visit Codes: 49216-ASC/OBS DISCH DAY >30min CYNDY COE RESIDENT Jul 14, 2025 16:00 ABI IBARRA MD Jul 19, 2025 20:24
[2025-07-14 17:00] VITALS: BP 158/97; PULSE 72; RESP 17; TEMP 98.2; O2SAT 96
== END 2025-07-14 18:15 | disposition home or self-care (01) | DRG 392 ==
LOC: ER 11:18 → EDBD 11:18 → OVERFLOW 15:27 → EAST 18:53
PROVIDERS: ADMIT Internal Medicine Geriatric Medicine; ATTEND Internal Medicine Geriatric Medicine
DX: A09 Infectious gastroenteritis and colitis, unspecified (principal); K92.2 Gastrointestinal hemorrhage, unspecified; I16.0 Hypertensive urgency; D72.828 Other elevated white blood cell count; Z20.822 Contact with and (suspected) exposure to COVID-19; I25.10 Atherosclerotic heart disease of native coronary artery without angina pectoris; E78.00 Pure hypercholesterolemia, unspecified; L40.8 Other psoriasis; Z80.0 Family history of malignant neoplasm of digestive organs; Z88.0 Allergy status to penicillin; Z79.899 Other long term (current) drug therapy
CPT/HCPCS: 36415; 71045; 80048; 80053; 80061; 80076; 80307; 80320; 81001; 82270; 83036; 83605; 83690; 83735; 84100; 84484; 85025; 85048; 86703; 87040; 87045; 87177; 87426; 87427; 87493; 87804; 93005; 93306; 96365; 96374; 97110; 97163; G0378; J2405; J2470; J3490